=== PATIENT | female | born 1975 | race Caucasian/White ===

== ENCOUNTER 2021-08-29 17:36 | Emergency (ER) | payer MEDICAID ==
[~2021-08-29] VITALS: Ht 175.3 cm; Wt 137.0 kg
[2021-08-29 17:45] VITALS: BP 209/128
[2021-08-29] MEDS ORDERED: LISI40TA13 PO (17:48)
[2021-08-29] MEDS ORDERED: HYDR25TA PO (17:48)
[2021-08-29] MEDS ORDERED: AMLO2.5T45 PO (17:48)
[2021-08-29] MEDS ORDERED: SULFAMETHOXAZOLE/TRIMETHOPRIM 800/160MG TABLET PO ONE (21:15)
[2021-08-29] MEDS ORDERED: SULF1TAB48 MT (22:13)
== END 2021-08-29 23:03 | disposition home or self-care (01) ==
LOC: ER 17:36
DX: L02.31 Cutaneous abscess of buttock (principal); E11.9 Type 2 diabetes mellitus without complications; I10 Essential (primary) hypertension; Z98.890 Other specified postprocedural states
CPT/HCPCS: 10060; 99283; Z7610

== ENCOUNTER 2022-03-13 19:05 | Emergency (ER) | payer MEDICAID ==
[~2022-03-13] VITALS: Ht 175.3 cm; Wt 134.0 kg
[~2022-03-13 19:05] MED LIST: AMLO2.5T45 PO; HYDR25TA PO; LISI40TA13 PO; SULF1TAB48 MT
[2022-03-13 19:07] VITALS: BP 177/106
[2022-03-13] MEDS ORDERED: CEPH500C2 MT (19:46)
[2022-03-13] MEDS ORDERED: SULF1TAB48 MT (19:46)
== END 2022-03-13 20:25 | disposition home or self-care (01) ==
LOC: ER 19:05
DX: L03.313 Cellulitis of chest wall (principal); E11.65 Type 2 diabetes mellitus with hyperglycemia; I10 Essential (primary) hypertension; Z98.890 Other specified postprocedural states
CPT/HCPCS: 82962; 99283

== ENCOUNTER 2024-03-01 15:26 | Emergency (ER) | payer MEDICAID ==
[~2024-03-01] VITALS: Ht 175.3 cm; Wt 127.0 kg
[~2024-03-01 15:26] MED LIST changes: +LEVO750T68 MT; -SULF1TAB48 MT
[2024-03-01 16:01] VITALS: O2SAT 97
[2024-03-01 17:48] VITALS: BP 190/90; PULSE 96; RESP 16; TEMP 98.5
== END 2024-03-01 17:54 | disposition home or self-care (01) ==
LOC: ER 15:26
DX: H11.32 Conjunctival hemorrhage, left eye (principal); E11.9 Type 2 diabetes mellitus without complications; I10 Essential (primary) hypertension
CPT/HCPCS: 99281

== ENCOUNTER 2024-04-15 02:56 | Emergency (ER) | payer MEDICAID ==
[~2024-04-15] VITALS: Ht 175.3 cm; Wt 127.0 kg
[2024-04-15 03:08] VITALS: O2SAT 98
[2024-04-15] MEDS: IBUPROFEN 600MG TABLET PO ONE (06:15)
[2024-04-15 08:41] VITALS: BP 124/78; PULSE 80; RESP 18; TEMP 98.2
== END 2024-04-15 10:31 | disposition home or self-care (01) ==
LOC: ER 03:19
DX: M21.961 Unspecified acquired deformity of right lower leg (principal); I10 Essential (primary) hypertension; E11.9 Type 2 diabetes mellitus without complications
CPT/HCPCS: 93971; 73610; 29515; 99284; Z7610